=== PATIENT | male | born 1960 | race Caucasian/White ===

== ENCOUNTER 2016-05-23 11:40 | Emergency (ER) | payer BC, OTHER ==
--- NOTE | 2016-05-23 12:48 | Emergency Department Record ---
History of Present Illness - General Chief complaint: Flank Pain Stated complaint: LEFT SIDE PAIN/WEAK/LIZZ Time Seen by Provider: 05/23/16 12:47 Source: Patient Mode of Arrival: Ambulatory Limitations: No limitations - History of Present Illness Initial comments: The patient is here due to the acute onset of L flank pain about 8 hours ago. The pain is sharp and stabbing in the LUQ. He denies any R sided or back pain but did have nausea and vomiting when it started. He has no hx of similar issues or problems and no recent illnesses. MD Complaint: Other Onset/Timin -: Hour(s) Radiation: Other Severity: Mild Severity scale (1-10): 6 Quality: Other Consistency: Constant Improves with: None Worsens with: None Reports: Nausea/vomiting, Other - Related Data Previous Rx's Medication Instructions Recorded Hydrocodone/Acetaminophen [[place] 1 - 2 each PO .EVERY 4-6 HRS PRN 05/23/16 5-325 Tablet] #20 tablet Ondansetron [Zofran Odt] 4 mg SL .Q4-6H PRN #12 tab.rapdis 05/23/16 Allergies Allergy/AdvReac Type Severity Reaction Status Date / Time No Known Allergies Allergy no Verified 05/23/16 12:26 allergies Travel Screening - Travel/Exposure Within Last 30 Days Have you traveled within the last 30 days?: No Review of Systems Constitutional: Denies: Chills, Fever Eyes: Denies: Eye discharge ENT: Denies: Congestion Respiratory: Denies: Cough, Dyspnea Cardiovascular: Denies: Arrhythmia, Chest pain Past Medical History - SOCIAL HISTORY Smoking Status: Never smoker Alcohol Use: Rare Drug Use: None - RESPIRATORY Hx Respiratory Disorders: No - CARDIOVASCULAR Hx Cardio Disorders: No - NEURO Hx Neuro Disorders: No - GI Hx GI Disorders: No - Hx Genitourinary Disorders: No - ENDOCRINE Hx Endocrine Disorders: No - MUSCULOSKELETAL Hx Musculoskeletal Disorders: No - PSYCH Hx Psych Problems: No - HEMATOLOGY/ONCOLOGY Hx Hematology/Oncology Disorders: No Family Medical History Any Significant Family History?: Yes Hx Cancer: Father Hx Seizures: Mother Hx Stroke: Mother Physical Exam - General General Appearance: Alert, Oriented x3, Cooperative, No acute distress - Head Head exam: Atraumatic, Normocephalic, Normal inspection - Eye Eye exam: Normal appearance, PERRL - Neck Neck exam: Normal inspection, Full ROM. negative: Tenderness - Respiratory Respiratory exam: Normal lung sounds bilaterally. negative: Respiratory distress - Cardiovascular Cardiovascular Exam: Regular rate, Normal rhythm, Normal heart sounds - GI/Abdominal GI/Abdominal exam: Soft, Normal bowel sounds, Tenderness (There is very mild LUQ tenderness but no guarding or rebound.). negative: Guarding, Pulsatile mass , Rebound, Rigid - Extremities Extremities exam: Normal inspection, Full ROM, Normal capillary refill. negative: Tenderness Course Vital Signs 05/23/16 12:20 Temperature 97.6 F Pulse Rate 77 Respiratory 20 Rate Blood Pressure 146/95 Pulse Ox 98 - Reevaluation(s) Reevaluation #1: The patient is doing much better at this time. His pain is almost completely gone. I did explain to the patient his lab, UA, and CT results. 05/23/16 14:04 Reevaluation #2: The patient is doing very well at this time. He is completely pain free. I did explain the need to return for any increased pain, fever, or vomiting. 05/23/16 14:25 Medical Decision Making - Data Complexity MDM Data: Labs Ordered and/or Reviewed, X-Ray Ordered and/or Reviewed - Lab Data Result diagrams: 05/23/16 13:13 05/23/16 13:13 - Radiology Data Radiology results: Report reviewed (CT: 2.7 mm L UVJ stone with mild to mod hydro.) Disposition Disposition: Discharge Clinical Impression: Ureteral stone with hydronephrosis Disposition: Home, Self-Care Condition: (1) Good Instructions: Renal Colic (ED) Additional Instructions: Please use Ibuprofen or [place] for pain. Please strain your urine to try to assure you passed the stone. Please use the Zofran for nausea. If you are still having pain in [address] Hankins. Return to the ER for any increased pain, fever, or vomiting. Prescriptions: Hydrocodone/Acetaminophen [[place] 5-325 Tablet] 1 - 2 each PO .EVERY 4-6 HRS PRN #20 tablet PRN Reason: Pain Ondansetron [Zofran Odt] 4 mg SL .Q4-6H PRN #12 tab.rapdis PRN Reason: Nausea Referrals: ELLIOT HANKINS M.D. [MEDICAL DOCTOR] - Forms: Patient Portal Access Time of Disposition: 14:25
[2016-05-23] MEDS ORDERED: HYDROMORPHONE HCL 1 MG/ML CPJ IVP ONE (12:51)
[2016-05-23] MEDS ORDERED: 0.9 % SODIUM CHLORIDE 1,000 ML BAG IV ONE (12:51)
[2016-05-23] MEDS ORDERED: FAMOTIDINE IV 20 MG/2 ML VIAL IVP ONE (12:51)
[2016-05-23 13:39] LABS: HEMATOCRIT 44.3 % (42.0-52.0); HEMOGLOBIN 14.9 gm/dl (14.0-18.0); MEAN CELL VOLUME 87.5 fl (81-97); MEAN CORPUSCULAR HEMOGLOBIN 29.4 pg (27-33); MEAN CORPUSCULAR HGB CONC 33.6 g/dl (32-36); MEAN PLATELET VOLUME 10.4 fl (7.4-10.4); PLATELET COUNT 399 K/uL (130-400); RED BLOOD COUNT 5.06 M/uL (4.40-5.70); RED CELL DISTRIBUTION WIDTH 14.9 % (11.5-14.5); WHITE BLOOD COUNT W/O DIFF 11.5 K/uL (4.2-12.2)
[2016-05-23 13:40] LABS: URINE APPEARANCE CLEAR; URINE BILIRUBIN NEGATIVE (NEGATIVE); URINE BLOOD MODERATE (NEGATIVE); URINE COLOR YELLOW; URINE GLUCOSE (UA) NEGATIVE (NEGATIVE); URINE KETONE NEGATIVE (NEGATIVE); URINE LEUKOCYTE ESTERASE NEGATIVE (NEGATIVE); URINE NITRITE NEGATIVE (NEGATIVE); URINE PROTEIN NEGATIVE (NEGATIVE); URINE UROBILINOGEN 0.2 E.U./dL (0.20 - 1.00)
[2016-05-23 13:46] LABS: URINE BACTERIA NONE SEEN; URINE EPITHELIAL CELLS NONE SEEN (FEW); URINE RBC 36 - 50 (NONE SEEN); URINE WBC NONE SEEN (0-2/hpf)
[2016-05-23 13:50] LABS: ANION GAP 15.8 (7-16); BLOOD UREA NITROGEN 18 mg/dL (9-20); CARBON DIOXIDE 23.2 mmol/L (22-30); CREATININE 0.9 mg/dL (0.66-1.25); EST GLOMERULAR FILTRATION RATE > 60 ml/min; GLUCOSE,RANDOM 123 mg/dL (70-110)
[2016-05-23 13:53] LABS: PLATELET ESTIMATE NORMAL (NORMAL)
[2016-05-23] MEDS ORDERED: KETOROLAC 30 MG/ML VIAL IVP ONE (14:00)
--- NOTE | 2016-05-27 04:39 | CT SCAN REPORT ---
EXAM: CT SCAN ABDOMEN/PELVIS WO CONTRAST HISTORY: PATIENT HAS LEFT-SIDED PAIN. TECHNIQUE: Serial axial CT scan of the abdomen and pelvis was performed at .75 mm intervals from the dome of the diaphragm down to the pubic symphysis without the use of intravenous contrast. Sagittal and coronal reconstructions are provided. No comparison CTs are available. FINDINGS: Lung windows of the lung bases demonstrate no CT evidence of a focal infiltrate or pleural effusion. The visualized heart size and contour are within normal limits. The liver demonstrates a 9 mm cyst within the superior aspect of the right hepatic lobe. Otherwise, the size and contour of the liver are within normal limits. No suspicious focal hepatic lesions are identified. The visualized spleen, pancreas, bilateral adrenal glands, gallbladder appear unremarkable. Nonobstructive calculi are identified within the right kidney. There is no CT evidence of hydronephrosis or hydroureter within the right kidney. The largest nonobstructive calculus within the right kidney measures approximately 2 mm and is located within its inferior pole. There is mild to moderate left-sided hydronephrosis and hydroureter. There is a partially obstructing 2.7 mm calculus within the left ureterovesical junction. Several nonobstructive calculi are identified within the left kidney. The largest of these nonobstructing calculi is located within the inferior pole of the left kidney and measures approximately 3.8 cm in diameter. Moderate left perinephric fat stranding is identified suggesting inflammation. Simple 1.7 cm cyst is noted within the inferior pole of the left kidney. The contour, caliber of the noncontrasted abdominal aorta is within normal limits. There is no CT evidence of retroperitoneal, pelvic, or inguinal lymphadenopathy. The bowel gas pattern is nonspecific and nonobstructive. There is no CT evidence of free intraperitoneal fluid or free intraperitoneal air. The visualized urinary bladder is decompressed. Other pelvic soft tissue structures are unremarkable. Bone windows demonstrate no CT evidence of a fracture or dislocation of the visualized osseous structures of the abdomen and pelvis. IMPRESSION: PARTIALLY OBSTRUCTING CALCULUS WITHIN THE LEFT URETEROVESICAL JUNCTION IS NOTED DESCRIBED. THIS CREATES MILD TO MODERATE LEFT-SIDED HYDRONEPHROSIS AND HYDROURETER. JOB NUMBER: [id number] [facility]
== END 2016-05-23 14:40 | disposition home or self-care (01) ==
LOC: ER 11:40
DX: N13.2 Hydronephrosis with renal and ureteral calculous obstruction (principal); R11.2 Nausea with vomiting, unspecified
CPT/HCPCS: 99284 ×2; 96374; 96375; 80048; 81001; 85027; 74176; J3490; J1885; J1170; J7030